=== PATIENT | female | born 1985 | race African-American/Black ===

== ENCOUNTER 2019-08-07 08:24 | Emergency (ER) | payer BC, OTHER ==
[2019-08-07] MEDS ORDERED: NORMAL SALINE 1000 ML 1,000 ML IV PRN (08:36)
[2019-08-07 09:02] LABS: ABSOLUTE LYMPHOCYTES (AUTO) 1.1 10^3/uL (0.5-4.7); ABSOLUTE MONOCYTES (AUTO) 0.2 10^3/uL (0.1-1.4); ABSOLUTE NEUT (AUTO) 7.9 10^3/uL (1.7-8.2); BASOPHILS % (AUTO) 0.3 % (0-2); HEMATOCRIT 44.6 % (36.0-47.0); HEMOGLOBIN 15.2 g/dL (12.0-15.5); LYMPHOCYTES % (AUTO) 12.1 % (13-45); MEAN CORPUSCULAR HEMOGLOBIN 28.9 pg (27.0-33.4); MEAN CORPUSCULAR HGB CONC 34.1 g/dL (32.0-36.0); MEAN CORPUSCULAR VOLUME 85 fl (80-97); MONOCYTES % (AUTO) 2.4 % (3-13); PLATELET COUNT 333 10^3/uL (150-450); RED BLOOD COUNT 5.26 10^6/uL (3.72-5.28); SEGMENTED NEUTROPHILS % (AUTO) 85.2 % (42-78); TOTAL CELLS COUNTED % (AUTO) 100 %; WHITE BLOOD COUNT 9.2 10^3/uL (4.0-10.5)
[2019-08-07 09:19] LABS: ALBUMIN 4.9 g/dL (3.5-5.0); ALKALINE PHOSPHATASE 87 U/L (38-126); ANION GAP 11 (5-19); ASPARTATE AMINO TRANSFERASE 36 U/L (14-36); BILIRUBIN,TOTAL 0.4 mg/dL (0.2-1.3); BLOOD UREA NITROGEN 9 mg/dL (7-20); CALCIUM 9.9 mg/dL (8.4-10.2); CARBON DIOXIDE 25 mmol/L (22-30); CHLORIDE 103 mmol/L (98-107); GLUCOSE 149 mg/dL (75-110); POTASSIUM 4.3 mmol/L (3.6-5.0); TOTAL PROTEIN 8.9 g/dL (6.3-8.2)
[2019-08-07 09:20] LABS: APPEARANCE,URINE CLEAR; BILIRUBIN,URINE NEGATIVE (NEGATIVE); COLOR,URINE YELLOW; GLUCOSE, URINE NEGATIVE (NEGATIVE); KETONES,URINE NEGATIVE (NEGATIVE); LEUKOCYTE ESTERASE,URINE NEGATIVE (NEGATIVE); NITRITE,URINE NEGATIVE (NEGATIVE); PROTEIN,URINE NEGATIVE (NEGATIVE); UROBILINOGEN,URINE NEGATIVE mg/dL (<2.0)
--- NOTE | 2019-08-07 09:25 | RADIOLOGY REPORT (SQ) ---
EXAM DESCRIPTION: CHEST SINGLE VIEW IMAGES COMPLETED DATE/TIME: 08/07/2019 9:13 am REASON FOR STUDY: short of breath COMPARISON: 09/30/2012. EXAM PARAMETERS: NUMBER OF VIEWS: One view. TECHNIQUE: Single frontal radiographic view of the chest acquired. RADIATION DOSE: NA LIMITATIONS: None. FINDINGS: LUNGS AND PLEURA: No opacities, masses or pneumothorax. No pleural effusion. MEDIASTINUM AND HILAR STRUCTURES: No masses. Contour normal. HEART AND VASCULAR STRUCTURES: Heart normal in size. Normal vasculature. BONES: No acute findings. HARDWARE: None in the chest. OTHER: No other significant finding. IMPRESSION: NO ACUTE RADIOGRAPHIC FINDING IN THE CHEST. TECHNICAL DOCUMENTATION: JOB ID: [id number] 2010 [employer]- All Rights Reserved Reading location - IP/workstation name: [email or web address]
[2019-08-07] MEDS ORDERED: NORMAL SALINE 1000 ML 1,000 ML IV ONE ×2 (11:28→13:06)
--- NOTE | 2019-08-07 11:34 | ER Document Report ---
ED General - General Chief Complaint: Shortness Of Breath Stated Complaint: SHORTNESS OF BREATH Time Seen by Provider: 08/07/19 09:37 Primary Care Provider: PHILLIP GUY MD [Primary Care Provider] - Follow up as needed TRAVEL OUTSIDE OF THE [place] 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 She presents now complaining of rapid heart rate overnight, decreased oral intake and dyspnea on exertion. She is a non-smoker. She denies any prior history of pulmonary disease. She has had some mild nonproductive cough and wheezing. She says she had a significant headache and myalgias last week but this part of the illness has resolved. She is not experiencing any diarrhea. She denies skin rashes. - Related Data Allergies/Adverse Reactions: No Known Allergies Allergy (Verified 04/30/13 08:31) Home Medications: HTZ, Past Medical History - General Information source: Patient - Social History Smoking Status: Never Smoker Family History: Reviewed & Not Pertinent Patient has homicidal ideation: No - Past Medical History Cardiac Medical History: Denies: Hx Coronary Artery Disease, Hx Heart Attack, Hx Hypertension Pulmonary Medical History: Denies: Hx Asthma, Hx Bronchitis, Hx COPD, Hx Pneumonia Neurological Medical History: Denies: Hx Cerebrovascular Accident, Hx Seizures Endocrine Medical History: Reports: Hx Diabetes Mellitus Type 2 GI Medical History: Reports: Hx Gastroesophageal Reflux Disease Musculoskeletal Medical History: Denies Hx Arthritis Past Surgical History: Denies: Hx Hysterectomy - Immunizations Hx Diphtheria, Pertussis, Tetanus Vaccination: Yes Review of Systems - Review of Systems Notes: Constitutional: As per HPI. HENT: Negative for sore throat. Eyes: Negative for visual changes. Cardiovascular: As per HPI. Respiratory: As per HPI. Gastrointestinal: Negative for abdominal pain, vomiting or diarrhea. Genitourinary: Negative for dysuria. Musculoskeletal: Negative for back pain. Skin: Negative for rash. Neurological: Negative for headaches, weakness or numbness. 10 point ROS negative except as marked above and in HPI. Physical Exam - Vital signs Vitals: Resp Pulse Ox 19 100 08/07/19 08:26 08/07/19 08:26 - Notes Notes: Remote Exam Using Telemedicine System for COVID risk mitigation GENERAL: Well-developed well-nourished appearing in no acute distress. O2 sat 100% on room air. Resting pulse rate is 100 and blood pressure is normal. Respiratory rate is 16. Patient does not appear in any acute distress. SKIN: no rashes. HEAD: Normocephalic atraumatic. EYES: PERRL. EOMI. Conjunctivae and sclerae clear. NOSE: CLEAR. MOUTH: Moist mucosa. Good dentition. No stridor or edema. No drooling. NECK: Full ROM. No visible masses or thyromegaly. No JVD. BACK: Symmetrical. CHEST: Respirations unlabored. Expands symmetrical. ABDOMEN: Non-distended. GENITALIA: Deferred. EXTREMITIES: No edema. NEUROLOGICAL: GCS 15. Alert and oriented x3. Normal gait. Fluent speech. Cranial nerves II through XII intact. Motor and cerebellar normal. PSYCHIATRIC: Appropriate affect. 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 She tested positive at work within the last 48 hours and was sent home. She came here today because of some increasing shortness of breath palpitations. Her EKG showed sinus tachycardia nonspecific changes. Her vital signs were remarkable for resting pulse rate of 110 and her pulse oximetry on room air was 100%. Chest x-ray shows no infiltrates. Patient symptomatically improved with 2 L normal saline IV. Blood sugar was 148 and she is a known type II diabetic managed with diet. Chemistry profile is otherwise remarkable for mild elevation of her SGOT consistent with fatty infiltration of the liver. Patient says she has been under a lot of stress at work and requested some low-dose Ativan which I think is appropriate. She will be discharged with follow-up within the next 48 hours by her primary care physician. 08/07/19 14:00 08/07/19 14:12 Current findings and disposition were discussed with her primary care provider Dr. Guy prior to discharge. - Vital Signs Vital signs: Temp Pulse Resp BP Pulse Ox 99.3 F 19 139/79 H 100 08/07/19 08:37 08/07/19 12:01 08/07/19 12:01 08/07/19 12:01 - Laboratory Result Diagrams: 08/07/19 08:30 08/07/19 08:30 Laboratory results interpreted by me: 08/07/19 08/07/19 08:30 08:30 Lymph % (Auto) 12.1 L Hutchinson % (Auto) 2.4 L Seg Neutrophils % 85.2 H Glucose 149 H ALT 43 H Total Protein 8.9 H - EKG Interpretation by Me Additional EKG results interpreted by me: 08/07/19 13:57 Twelve-lead EKG from 0830 hrs. reviewed contemporaneously by me showing sinus tachycardia with a rate of 115 and nonspecific T wave abnormalities with no ST s hift. Intervals are normal. QRS axis is +81 degrees. No old tracing available for direct comparison. Indication for the study was palpitations. Discharge - Discharge Clinical Impression: Dehydration, COVID-19 virus infection Condition: Stable Disposition: HOME, SELF-CARE Instructions: Acetaminophen Additional Instructions: Increase oral fluids. Tylenol as needed. Self-isolation for the next 14 days. Return here as needed for new or worsening symptoms: Pain that is worsening or unimproved Uncontrolled vomiting High fever or shaking chills Overall worsening Prescriptions: Lorazepam [Ativan 0.5 mg Tablet] 0.5 mg PO Q4 PRN 7 Days #15 tab PRN Reason: Referrals: PHILLIP GUY MD [Primary Care Provider] - Follow up as needed
--- NOTE | 2019-08-07 11:43 | EKG REPORT ---
SEVERITY:- BORDERLINE ECG - SINUS TACHYCARDIA BORDERLINE T ABNORMALITIES, DIFFUSE LEADS : Confirmed by: Malachi Sandoval MD 07-Aug-2019 11:42:52
[2019-08-07] MEDS ORDERED: LORAZEPAM 1 MG TABLET PO ONE (13:05)
[2019-08-07 15:10] VITALS: BP 125/78
--- NOTE | 2019-08-07 21:34 | ER Document Report ---
Doctor's Note Notes: 08/07/19 21:34 I was notified that an Ativan prescription had been handwritten by Dr. Smart, this had to be electronically transmitted. I did order the Ativan, dispense #15, as previously prescribed by Dr. Smart. This was electronically submitted. I did not evaluate the patient.
== END 2019-08-07 15:15 | disposition home or self-care (01) ==
LOC: ER 08:24
DX: E86.0 Dehydration (principal); Z20.828 Contact with and (suspected) exposure to other viral communicable diseases; R06.02 Shortness of breath; R00.0 Tachycardia, unspecified; R63.0 Anorexia; R06.00 Dyspnea, unspecified
CPT/HCPCS: 93005; 99285; 96360; 96361; 36415; 85025; 80053; 81001; 71045; 93010; J7030

== ENCOUNTER → 2019-12-09 | Outpatient (CLI) | payer OTHER ==
[2019-12-09 14:19] LABS: CREATINE KINASE MB 0.29 ng/mL (<4.55)
[2019-12-09 14:23] LABS: TROPONIN I < 0.012 ng/mL
== END ==
LOC: OD 12:14
PROVIDERS: ATTEND Nurse Practitioner Adult Health
DX: R07.89 Other chest pain (principal)
CPT/HCPCS: 36415; 82553; 84484

== ENCOUNTER 2020-01-08 10:32 | Day surgery (SDC) | payer OTHER ==
[~2020-01-08 10:32] MED LIST: LACTATED RINGERS 1000 ML IV PRN; LIDOCAINE 0.5% INJ-PF (5 MG/ML) 50 ML SDV SUBCUT PRN
[2020-01-08] MEDS ORDERED: PROPOFOL INJ 200 MG/20 ML VIAL IV ONE (11:51)
--- NOTE | 2020-01-08 13:15 | PDOC H&P ---
History of Present Illness Admission Date/PCP: PHILLIP GUY Patient complains of: No complaints. Presenting for transesophageal echocardiogram History of Present Illness: SALONI MIRANDA is a 34 year old female With no significant medical problems. She carries a diagnosis of polycystic ovary syndrome. She had COVID-19 infection in the earlier part of the year. Based on subsequent symptoms of dyspnea and palpitations and easy fatigability transthoracic echocardiogram was performed on October 22, 2019 at another physician's office. On that study the ejection fraction was preserved and there was no significant valvular abnormality. However there was a suspicion of artifact versus vegetation of the posterior mitral valve leaflet. We initially performed a transthoracic echocardiogram to further evaluate this abnormality and there was a persistent abnormality of the posterior mitral leaflet. Based on this we decided to proceed with transesophageal echocardiogram. No change in her health since we last met in the office. Patient is a nurse by profession. She does not smoke cigarettes or use any substances for recreation. No familial illnesses reported. Review of systems negative for fever chills cough nausea vomiting chest pain palpitations syncope presyncope. Full 11 review of systems was asked and pertinent positives noted here and in the HPI all other systems are negative. Past Medical History Cardiac Medical History: Reports: Hypertension - TAKES HCTZ Denies: Coronary Artery Disease, Myocardial Infarction Pulmonary Medical History: Denies: Asthma, Bronchitis, Chronic Obstructive Pulmonary Disease (COPD), Pneumonia Neurological Medical History: Denies: Seizures Endocrine Medical History: Reports: Diabetes Mellitus Type 2 GI Medical History: Reports: Gastroesophageal Reflux Disease Musculoskeltal Medical History: Denies: Arthritis Hematology: Denies: Anemia Past Surgical History Past Surgical History: Denies: Hysterectomy Social History Smoking Status: Never Smoker Family History Family History: Reviewed & Not Pertinent Parental Family History Reviewed: Yes - No familial illnesses Children Family History Reviewed: NA Sibling(s) Family History Reviewed.: NA Medication/Allergy Home Medications: Rizatriptan Benzoate [Maxalt] 5 mg PO PRN PRN 10/31/12 Hydrochlorothiazide [Hydrodiuril 25 mg Tablet] 25 mg PO QAM 01/05/20 95/Iron Fum/Folic/Dha [ + Dha Combo Pack] 1 cap PO DAILY 01/05/20 Allergies/Adverse Reactions: No Known Allergies Allergy (Verified 01/08/20 10:58) Review of Systems Constitutional: PRESENT: as per HPI Ears: ABSENT: as per HPI, hearing changes, other Nose, Mouth, and Throat: ABSENT: as per HPI, headache(s), mouth pain, sore throat, vertigo, other Breasts: ABSENT: as per HPI, other Respiratory: ABSENT: as per HPI, cough, dyspnea, hemoptysis, sputum, other Gastrointestinal: ABSENT: as per HPI, abdominal pain, bloating, coffee ground em esis, constipation, diarrhea, dysphagia, heartburn, hematemesis, hematochezia, melena, nausea, vomiting, other Neurological: ABSENT: as per HPI, abnormal gait, abnormal movements, abnormal speech, confusion, convulsions, dizziness, focal weakness, frequent falls, lack of coordination, memory loss, numbness, paresthesias, restless legs, syncope, tingling, tremor(s), vertigo, weakness, other Physical Exam Vital Signs: Temp Pulse Resp BP Pulse Ox 97.6 F 90 20 124/72 100 01/08/20 12:44 01/08/20 12:54 01/08/20 12:54 01/08/20 12:54 01/08/20 12:54 Intake & Output 01/07/20 01/08/20 01/09/20 06:59 06:59 06:59 Weight 76.2 kg General appearance: PRESENT: no acute distress, cooperative Head exam: PRESENT: atraumatic, normocephalic Eye exam: PRESENT: conjunctiva pink, EOMI Mouth exam: PRESENT: moist Respiratory exam: PRESENT: symmetrical, unlabored Cardiovascular exam: PRESENT: RRR Pulses: PRESENT: normal radial pulses Rectal exam: PRESENT: deferred Neurological exam: PRESENT: alert, awake, oriented to person, oriented to place Psychiatric exam: PRESENT: appropriate affect Skin exam: PRESENT: dry, intact Results Laboratory Results: 01/08/20 11:14 01/08/20 11:14 Potassium 4.3 Assessment & Plan - Diagnosis (1) Abnormal echocardiogram Is this a current diagnosis for this admission?: Yes Plan: Patient's transthoracic echocardiogram was abnormal with evidence of either artifact or vegetation on the posterior mitral leaflet or some other mass. To further ascertain his problem we decided to proceed with transesophageal echocardiogram. There is and benefits of this procedure were discussed in the office. The risk included potential for damage to the esophagus including esophageal perforation, or other mucosal injury, side effects or reactions to any of the medications used for anesthesia. There is a small risk of aspiration and aspiration pneumonia. Patient is willing to proceed and understands. - Time Time Spent: 30 to 50 Minutes Medications reviewed and adjusted accordingly: No Anticipated Discharge Disposition: Home, Self Care Anticipated Discharge Timeframe: within 24 hours
--- NOTE | 2020-01-08 13:58 | XCELERA REPORT ---
Study ID: [id number] [address] [id number] Transesophageal Echocardiogram Report Name: SALONI MIRANDA Age: 34 yrs Gender: Female : 1985 Patient Status: Outpatient [facility] Study Date: 01/08/2020 11:27 AM History: Suspected Mitral vegetation.mass Reason For Study: MITRAL VALVE DISORDER, ENDOCARDTITIS Ordering Physician: GRANT BAUMANN Performed By: Candida Witt Interpretation Summary Left ventricular systolic function is normal. Ejection Fraction = >55%. The right ventricle is normal in size and function. Redundant chordal tissue under both valve leaflets-no mass or vegetation seen. There is no vegetation seen on the mitral valve. There is no mitral valve stenosis. There is no mitral regurgitation noted. No tricuspid regurgitation. No hemodynamically significant valvular aortic stenosis. There is no pericardial effusion. Procedure A complete two-dimensional transesophageal echocardiogram was performed (2D, spectral and color flow Doppler). Informed consent for Transesophageal Echocardiogram, and use of a contrast agent as needed, was obtained prior to the procedure. The patient was brought to the OR in a fasting state. An intravenous line was placed. A topical anesthetic agent was used for oropharangeal anesthesia. A bite block was inserted. IV conscious sedation was administered using per anesthesia team. The patient's vital signs, including blood pressure, heart rate, pulse oximetry and cardiac rhythm were monitored thoughout the procedure. The transesophageal probe was passed without difficulty. The usual views were obtained; basal, mid-esophageal, transgastric and aortic views. The patient tolerated the procedure well without evidence of orophangeal or esophageal trauma. Subsequent to all the images being obtained the probe was removed with out trauma. Left Ventricle The left ventricle is normal in size. There is no thrombus. There is normal left ventricular wall thickness. Left ventricular systolic function is normal. Ejection Fraction = >55%. The left ventricular wall motion is normal. Right Ventricle The right ventricle is normal in size and function. Atria The interatrial septum is intact with no evidence for an atrial septal defect. There is no Doppler evidence for an atrial septal defect. The left atrial size is normal. No left atrial mass or thrombus visualized. Right atrial size is normal. Mitral Valve The mitral valve is grossly normal. Redundant chordal tissue under both valve leaflets-no mass or vegetation seen. There is no vegetation seen on the mitral valve. There is no mitral valve stenosis. There is no mitral regurgitation noted. Tricuspid Valve The tricuspid valve is normal in structure and function. There is no tricuspid stenosis. No tricuspid regurgitation. Aortic Valve The aortic valve is normal in structure and function. The aortic valve is trileaflet. The aortic valve opens well. No hemodynamically significant valvular aortic stenosis. No aortic regurgitation is present. Pulmonic Valve The pulmonic valve is normal in structure and function. There is no pulmonic valvular stenosis. Trace pulmonic valvular regurgitation. Arteries The aortic root is normal size. Pericardium There is no pericardial effusion. : GRANT BAUMANN Anil
[2020-01-08 17:11] VITALS: BP 117/76
== END 2020-01-08 14:20 | disposition home or self-care (01) ==
LOC: OROUT 10:32
PROVIDERS: ATTEND Internal Medicine
DX: I37.1 Nonrheumatic pulmonary valve insufficiency (principal); I10 Essential (primary) hypertension; E28.2 Polycystic ovarian syndrome; Z86.19 Personal history of other infectious and parasitic diseases; Z79.899 Other long term (current) drug therapy; Z03.818 Encounter for observation for suspected exposure to other biological agents ruled out
CPT/HCPCS: 93312; 93325; 36415 ×2; 84132 ×2; 87635; 81025; 01922; J2704; C9803; 1922